=== PATIENT | female | born 1995 | race Caucasian/White ===

== ENCOUNTER 2016-11-06 05:35 | Day surgery (SDC) | payer BC ==
[~2016-11-06] VITALS: Ht 162.6 cm; Wt 43.1 kg
[~2016-11-06 05:35] MED LIST: AMOXICILLIN500 M1 PO; AUGMENTIN875 MG PO; BENTYL10 MG PO; COLACE100 MG PO; DEPO; ESCITALOPRAM OX10 MG PO; ZOFRAN ODT4 MG PO; ZOLOFT25 MG PO
[2016-11-06] MEDS ORDERED: METHYLPREDNISOLO4 MG PO (05:50)
[2016-11-06 05:57] VITALS: BP 132/93
[2016-11-06 07:38] LABS: ADD MIUA? YES; BILIRUBIN NEGATIVE; BLOOD NEGATIVE; COLOR YELLOW ((YELLOW)); GLUCOSE (STRIP) NEGATIVE; KETONES NEGATIVE; LEUKOCYTES NEGATIVE; NITRITE NEGATIVE; PROTEIN (STRIP) NEGATIVE; UROBILINOGEN 0.2 MG/DL (0.2-1.0)
[2016-11-06 08:06] LABS: AMORPHOUS PHOSPHATE CRYSTALS 4+; BACTERIA NONE SEEN /HPF; CASTS NONE SEEN /LPF; CRYSTALS PRESENT; EPITHELIAL CELLS 1+ /HPF; MUCUS NONE SEEN /LPF; RED BLOOD CELLS 0-5 /HPF (0-5); WHITE BLOOD CELLS 0-5 /HPF (0-5)
[2016-11-06] MEDS ORDERED: PERCOCET 5/31 TABLET PO (08:20)
[2016-11-06 09:47] VITALS: BP 121/79
[2016-11-06 10:58] VITALS: BP 127/81
== END 2016-11-06 11:00 | disposition home or self-care (01) ==
LOC: SDC 05:35
PROVIDERS: Surgery
PROC: 0FT44ZZ Resection of Gallbladder, Percutaneous Endoscopic Approach (ICD-10-PCS; principal; 2016-11-06)
DX: K81.1 Chronic cholecystitis (principal); Z82.49 Family history of ischemic heart disease and other diseases of the circulatory system
CPT/HCPCS: 81003; 88304; J0690; J1170; J1885; J2175; J2250; J3010

== ENCOUNTER 2016-11-11 17:16 | Emergency (ER) | payer BC ==
[~2016-11-11] VITALS: Ht 162.6 cm; Wt 42.4 kg
[~2016-11-11 17:16] MED LIST changes: +METHYLPREDNISOLO4 MG PO; +PERCOCET 5/31 TABLET PO
[2016-11-11 19:01] LABS: HEMATOCRIT 43.1 % (36.0-46.0); MCH 29.1 PG (29.0-34.0); MCHC 34.1 G/DL (30.0-36.0); MCV 85.2 FL (83-99); MEAN PLAT.VOLUME 10.6 uM^3 (9.5-12.4); PLATELET COUNT 279 K/uL (156-360); RBC DIS.WIDTH-SD 36.9 % (39-53); RED BLOOD COUNT 5.06 M/uL (3.80-5.20); WHITE BLOOD COUNT 7.3 K/uL (4.1-10.2)
[2016-11-11 19:12] LABS: CHLORIDE 101 mEq/L (99-109); POTASSIUM 3.7 mEq/L (3.7-5.4); SODIUM 138 mEq/L (136-147)
[2016-11-11 19:15] LABS: GLUCOSE 84 mg/dL (70-99)
[2016-11-11 19:16] LABS: ANION GAP 13 MEQ/L (2-14)
[2016-11-11 19:17] LABS: TOTAL BILIRUBIN 1.1 mg/dL (0.0-1.0)
[2016-11-11 19:18] LABS: ALKALINE PHOSPHATASE 55 IU/L (3-129); GFR ESTIMATE (CALCULATED) > 59 mL/min/
[2016-11-11 19:19] LABS: UREA NITROGEN (BUN) 9 mg/dL (9-23)
[2016-11-11 19:22] LABS: LIPASE 26 U/L (1.0-51.0)
[2016-11-11 21:28] LABS: ADD MIUA? NO; BILIRUBIN NEGATIVE; BLOOD NEGATIVE; COLOR YELLOW ((YELLOW)); GLUCOSE (STRIP) NEGATIVE; KETONES 5; LEUKOCYTES NEGATIVE; NITRITE NEGATIVE; PROTEIN (STRIP) NEGATIVE; UCUL ADDED? NO; UROBILINOGEN 0.2 MG/DL (0.2-1.0)
[2016-11-11] MEDS ORDERED: PREDNISONE20 MG PO (22:13)
[2016-11-11] MEDS ORDERED: PERCOCET 5/31 TABLET PO (22:32)
[2016-11-11] MEDS ORDERED: ZOFRAN ODT4 MG PO (22:32)
[2016-11-11 22:36] VITALS: BP 117/72
[2016-11-11 22:51] LABS: SPECIFIC GRAVITY 1.067 (1.000-1.030)
== END 2016-11-11 22:40 | disposition home or self-care (01) ==
LOC: EME 17:16
PROVIDERS: Physician Assistant
DX: L73.9 Follicular disorder, unspecified (principal); G89.18 Other acute postprocedural pain; Z90.49 Acquired absence of other specified parts of digestive tract
CPT/HCPCS: 74177; 80053; 81003; 83690; 85027; 87070; 87075; 87205; 99281; 99285; J1885; J2405; J7030; J7512

== ENCOUNTER 2017-03-04 16:30 | Emergency (ER) | payer OTHER, BC ==
[~2017-03-04] VITALS: Ht 162.6 cm; Wt 45.0 kg
[~2017-03-04 16:30] MED LIST changes: +PREDNISONE20 MG PO
[2017-03-04] MEDS ORDERED: PREDNISONE5 M1 PO (18:55)
[2017-03-04] MEDS ORDERED: FLEXERIL5 MG PO (18:55)
[2017-03-04] MEDS ORDERED: FIORICET 50-301 EACH PO (18:55)
[2017-03-04 19:10] VITALS: BP 157/95
== END 2017-03-04 19:39 | disposition home or self-care (01) ==
LOC: EME 16:30
DX: M54.16 Radiculopathy, lumbar region (principal); R51 Headache; M79.604 Pain in right leg; V49.40XA Driver injured in collision with unspecified motor vehicles in traffic accident, initial encounter; Y92.410 Unspecified street and highway as the place of occurrence of the external cause
CPT/HCPCS: 99281; 99282